=== PATIENT | female | born 1975 | race American Indian/Alaskan Native ===

== ENCOUNTER 2019-01-23 07:12 | Outpatient (CLI) | payer OTHER ==
--- NOTE | 2019-01-23 08:50 | Magnetic Resonance Report ---
MRI BRAIN WITHOUT AND WITH CONTRAST: 01/23/19 07:32:00 CLINICAL: Memory deficit following unspecified cerebrovascular disease. No comparison. TECHNIQUE: Axial diffusion, T1, FLAIR, gradient echo T2*, and coronal and axial T2 and sagittal T1 plus coronal and axial postcontrast T1 sequences on a 1.5 Mayela magnet. 10.0 cc of Multihance was injected intravenously for the contrast portion of the exam. Consent was obtained prior to the administration of contrast. FINDINGS: Normal ventricles and sulci. No restricted diffusion and no abnormal signal. No mass or enhancing lesion. No hemorrhage, edema or extra-axial collection. Normal pituitary and optic chiasm. The brainstem and cerebellum are normal. Intact vascular flow voids. The orbits, sinuses and soft tissues are normal. Normal calvarium and skull base. IMPRESSION: Normal study.
== END 2019-01-23 07:13 | disposition home or self-care (01) ==
LOC: MRI 07:12
PROVIDERS: ATTEND Otolaryngology
DX: I69.911 Memory deficit following unspecified cerebrovascular disease (principal)
CPT/HCPCS: 70553; A9577